=== PATIENT | female | born 1985 | race Caucasian/White ===

== ENCOUNTER 2021-03-31 07:19 | Emergency (ER) | payer BC ==
--- NOTE | 2021-03-31 07:38 | EDM.PDOC ---
ED HPI GENERAL MEDICAL PROBLEM - General Chief Complaint: Upper Extremity Injury/Pain Stated Complaint: DISLOCATED SHOULDER Time Seen by Provider: 03/31/21 07:25 Source of Information: Reports: Patient History Limitations: Reports: No Limitations - History of Present Illness INITIAL COMMENTS - FREE TEXT/NARRATIVE: Patient presented to the ED because of Left shoulder pain after dislocating it and heard a pop back and now she is able to move her left arm. En route here EMS gave her 0.5 mg of dilaudid IV and her pain is now 2/10. She has a history of left shoulder dislocation and it usually happen 2 times a year. She was seen by ortho in the past but she will just be managed conservatively. Left Shoulder Pain Score (Numeric/FACES): 3 Review of Systems - Review of Systems Review Of Systems: See Below Constitutional: Reports: No Symptoms Eyes: Reports: No Symptoms Ears: Reports: No Symptoms Nose: Reports: No Symptoms Mouth/Throat: Reports: No Symptoms Respiratory: Reports: No Symptoms Cardiovascular: Reports: No Symptoms GI/Abdominal: Reports: No Symptoms Genitourinary: Reports: No Symptoms Musculoskeletal: Reports: Shoulder Pain, Arm Pain Skin: Reports: No Symptoms Neurological: Reports: No Symptoms Psychiatric: Reports: No Symptoms ED EXAM, GENERAL - Physical Exam Exam: See Below Exam Limited By: No Limitations General Appearance: Alert, No Apparent Distress Ears: Normal External Exam, Normal Canal Nose: Normal Inspection, Normal Mucosa, No Blood Throat/Mouth: Normal Inspection, Normal Lips, Normal Teeth Head: Atraumatic, Normocephalic Neck: Normal Inspection, Supple, Non-Tender, Full Range of Motion Respiratory/Chest: No Respiratory Distress, Lungs Clear, Normal Breath Sounds, No Accessory Muscle Use, Chest Non-Tender Cardiovascular: Normal Peripheral Pulses, Regular Rate, Rhythm, No Edema, No JVD, No Murmur, No Rub GI/Abdominal: Normal Bowel Sounds, Soft, Non-Tender, No Organomegaly Back Exam: Normal Inspection, Full Range of Motion, Other (Left AC joint tenderness) Extremities: Normal Inspection, Normal Range of Motion Neurological: Alert, Oriented, CN II-XII Intact, Normal Cognition Psychiatric: Normal Affect, Normal Mood Course - Vital Signs Text/Narrative:: Xray left shoulder-see result Refused to have arm sling, she said she have one at home and would rather use it. Last Recorded V/S: Last Vital Signs Temp 37.1 C 03/31/21 07:30 Pulse 86 03/31/21 07:30 Resp 18 03/31/21 07:30 BP 114/78 03/31/21 07:30 Pulse Ox 99 03/31/21 07:30 - Orders/Labs/Meds Orders: Active Orders 24 hr Category Date Time Status Shoulder Comp Lt [CR] Stat Exams 03/31/21 07:26 Taken Departure - Departure Time of Disposition: 08:00 Disposition: Home, Self-Care 01 Condition: Good Clinical Impression: Shoulder dislocation - Discharge Information Instructions: Shoulder Pain, [id number], Shoulder Dislocation, [id number] Forms: ED Department Discharge Additional Instructions: Please read discharge instructions on shoulder dislocation The xray showed that your left shoulder is back in place, it's no longer dislocated and there is no fracture Apply ice Take ibuprofen 800 mg with tylenol 1000 mg every 8 hours as needed for pain Follow up with your orthopedic doctor if your shoulder keep dislocating Sepsis Event Note (ED) - Focused Exam Vital Signs: Vital Signs Temp Pulse Resp BP Pulse Ox 03/31/21 07:30 37.1 C 86 18 114/78 99 - My Orders Last 24 Hours: My Active Orders 03/31/21 07:26 Shoulder Comp Lt [CR] Stat - Assessment/Plan Last 24 Hours: My Active Orders 03/31/21 07:26 Shoulder Comp Lt [CR] Stat
--- NOTE | 2021-03-31 09:31 | CR ---
INDICATION: Left shoulder pain. History of left shoulder dislocation. LEFT SHOULDER: Three views of the left shoulder were obtained 03/31/21 - no comparisons. An acute fracture, dislocation, or other significant bone or joint abnormality, was not identified. Adjacent ribs and lung were unremarkable. If symptoms persist - if occult fracture site is suspected clinically, reexamination in 10-14 days may be helpful. MTDD
== END 2021-03-31 08:20 | disposition home or self-care (01) ==
LOC: FB.ED 07:19
DX: S43.005A Unspecified dislocation of left shoulder joint, initial encounter (principal); X58.XXXA Exposure to other specified factors, initial encounter
CPT/HCPCS: 73030-LT; 99284-25